=== PATIENT | female | born 1985 | race Caucasian/White ===

== ENCOUNTER 2016-11-14 21:42 | Emergency (ER) | payer OTHER ==
[~2016-11-14] VITALS: Ht 162.6 cm; Wt 81.6 kg
[~2016-11-14 21:42] MED LIST: FLAG500T PO; MACR100C3 PO; MAG400TA PO; NO MEDS AT HOME; PERCOCET PO; PREN27TA3 PO; VITAPRTA PO
[2016-11-14] MEDS ORDERED: [UNRECOGNIZED DRUG - CODE] PO (22:21)
[2016-11-14] MEDS ORDERED: APRITAB PO (22:21)
[2016-11-15 02:32] LABS: BASO % 0.5 % (0.0-1.0); EOS # 0.2 K/mm3 (0.0-0.50); EOS % 2.1 % (0.0-3.0); LARGE UNSTAINED CELL # 0.2 K/mm3 (0.0-0.4); LYMPH % 24.6 % (24.0-44.0); MEAN CORPUSCULAR HEMOGLOBIN 27.2 pg (27.0-33.0); MEAN CORPUSCULAR HGB CONC 33.4 g/dl (32.0-36.5); MEAN CORPUSCULAR VOLUME 81.4 fl (80.0-96.0); MONO # 0.5 K/mm3 (0.0-0.8); MONO % 5.8 % (0.0-5.0); NEUTROPHILS # 5.4 K/mm3 (1.8-7.7); NEUTROPHILS % 64.9 % (36.0-66.0); PLATELET COUNT, AUTOMATED 271 k/mm3 (150-450); RED CELL DISTRIBUTION WIDTH 13.4 % (11.5-14.5); WHITE BLOOD COUNT 8.3 K/mm3 (4.0-10.0)
[2016-11-15 02:37] LABS: CONTROL LINE HCG INT CTR LINE PRESENT
[2016-11-15 02:42] LABS: ALKALINE PHOSPHATASE 106 U/L (45-117); ALT/SGPT 50 U/L (12-78); ANION GAP 12 MEQ/L (8-16); AST/SGOT 26 U/L (15-37); BILIRUBIN,DIRECT < 0.1 MG/DL (0.0-0.2); BILIRUBIN,TOTAL 0.2 MG/DL (0.2-1.0); BLOOD UREA NITROGEN 12 MG/DL (7-18); CALCIUM LEVEL 9.1 MG/DL (8.5-10.1); CARBON DIOXIDE LEVEL 24 MEQ/L (21-32); CHLORIDE LEVEL 109 MEQ/L (98-107); CREATININE FOR GFR 0.84 MG/DL (0.55-1.02); GLOMERULAR FILTRATION RATE > 60.0 (>60); GLUCOSE, FASTING 93 MG/DL (70-105); POTASSIUM SERUM 3.4 MEQ/L (3.5-5.1); SODIUM LEVEL 145 MEQ/L (136-145)
[2016-11-15] MEDS ORDERED: metroNIDAZOLE (FLAGYL) 500 MG TAB PO ONE (04:30)
[2016-11-15] MEDS ORDERED: FLAG500T PO (04:32)
[2016-11-15 04:44] VITALS: BP 116/71
== END 2016-11-15 04:47 | disposition home or self-care (01) ==
LOC: M ED 22:38
DX: N76.0 Acute vaginitis (principal); R11.2 Nausea with vomiting, unspecified; M79.7 Fibromyalgia

== ENCOUNTER 2017-05-29 18:09 | Emergency (ER) | payer OTHER ==
[~2017-05-29] VITALS: Ht 165.1 cm; Wt 74.1 kg
[~2017-05-29 18:09] MED LIST changes: -BENT20TA PO; -PROT1TAB2 PO; -ZOFR4TAB3 PO
[2017-05-29] MEDS ORDERED: ONDANSETRON 4MG/2ML VIAL (J2405) IV ONE (20:00)
[2017-05-29] MEDS ORDERED: NS 1,000 ML IV ONE (20:00)
[2017-05-29] MEDS ORDERED: MORPHINE 4 MG/ML 1ML SYRINGE IV ONE (20:00)
[2017-05-29 20:01] LABS: CONTROL LINE UCG INT CTR LINE PRESENT
[2017-05-29 20:26] LABS: BASO % 0.4 % (0.0-1.0); EOS # 0.2 K/mm3 (0.0-0.50); EOS % 2.5 % (0.0-3.0); LARGE UNSTAINED CELL # 0.2 K/mm3 (0.0-0.4); LYMPH # 1.9 K/mm3 (1.5-4.5); LYMPH % 19.1 % (24.0-44.0); MEAN CORPUSCULAR HEMOGLOBIN 27.2 pg (27.0-33.0); MEAN CORPUSCULAR HGB CONC 33.6 g/dl (32.0-36.5); MEAN CORPUSCULAR VOLUME 81.2 fl (80.0-96.0); MONO # 0.8 K/mm3 (0.0-0.8); MONO % 8.1 % (0.0-5.0); NEUTROPHILS # 6.8 K/mm3 (1.8-7.7); NEUTROPHILS % 67.9 % (36.0-66.0); PLATELET COUNT, AUTOMATED 365 k/mm3 (150-450)
[2017-05-29 20:47] LABS: ALBUMIN 3.3 GM/DL (3.2-5.2); ALKALINE PHOSPHATASE 264 U/L (45-117); ALT/SGPT 98 U/L (12-78); ANION GAP 9 MEQ/L (8-16); AST/SGOT 72 U/L (15-37); BILIRUBIN,DIRECT < 0.1 MG/DL (0.0-0.2); BILIRUBIN,TOTAL 0.2 MG/DL (0.2-1.0); BLOOD UREA NITROGEN 9 MG/DL (7-18); CALCIUM LEVEL 8.4 MG/DL (8.5-10.1); CARBON DIOXIDE LEVEL 24 MEQ/L (21-32); CHLORIDE LEVEL 112 MEQ/L (98-107); CREATININE FOR GFR 0.57 MG/DL (0.55-1.02); GLOMERULAR FILTRATION RATE > 60.0 (>60); GLUCOSE, FASTING 86 MG/DL (70-105); POTASSIUM SERUM 3.7 MEQ/L (3.5-5.1); SODIUM LEVEL 145 MEQ/L (136-145); TOTAL PROTEIN 6.6 GM/DL (6.4-8.2)
--- NOTE | 2017-05-29 21:10 | REPUSA ---
CT of the abdomen and pelvis without contrast Clinical statement: Pain. Technique: Multiple axial CT images were obtained from the base of the lungs to the floor of the pelv is utilizing 5 mm axial slices without administration of contrast. Coronal and sagittal reconstructio ns were also obtained. Comparison: 07/24/2013. Findings: Chest: The visualized lung bases are clear. Abdomen: The kidneys are normal in size bilaterally. There is no evidence of hydronephrosis or nephro lithiasis. The liver, spleen, pancreas, and adrenal glands are unremarkable. The aorta demonstrates n ormal caliber and contour. There is no abdominal lymphadenopathy or ascites. Pelvis: The bowel is unremarkable, with no obstructive or inflammatory changes. The urinary bladder i s within normal limits. There is no pelvic lymphadenopathy or ascites. The other pelvic structures ap pear unremarkable. Bones: There are no suspicious osseous abnormalities seen. Impression: Unremarkable CT examination of the abdomen and pelvis.
[2017-05-29] MEDS ORDERED: KETOROLAC 30 MG/ML VIAL (J1885) IV ONE (21:45)
[2017-05-29] MEDS ORDERED: PROT1TAB2 PO (22:28)
[2017-05-29] MEDS ORDERED: ZOFR4TAB3 PO (22:28)
[2017-05-29] MEDS ORDERED: BENT20TA PO (22:28)
[2017-05-29] MEDS ORDERED: DICYCLOMINE 10 MG CAP PO ONE (22:30)
[2017-05-29] MEDS ORDERED: ONDANSETRON 4 MG ORAL DISINTEGRATING TAB (S0181) PO ONE (22:30)
[2017-05-29 22:46] VITALS: BP 121/70
== END 2017-05-29 22:48 | disposition home or self-care (01) ==
LOC: M ED 18:09
DX: R10.12 Left upper quadrant pain (principal); Z79.899 Other long term (current) drug therapy
CPT/HCPCS: 74176; 80048; 80076; 81001; 83690; 84703; 85025; 87086; 96374; 96375; 99283; J1885; J2405

== ENCOUNTER → 2017-05-29 | Outpatient (REF) | payer OTHER ==
[~2017-05-29] MED LIST changes: +APRITAB PO; +BENT20TA PO; -MACR100C3 PO; +MACR100C43 PO; +PROT1TAB2 PO; +ZOFR4TAB3 PO; +[UNRECOGNIZED DRUG - CODE] PO
== END ==
LOC: M SFHCLERA 16:15
PROVIDERS: ATTEND Nurse Practitioner Family
DX: R10.9 Unspecified abdominal pain (principal)

== ENCOUNTER → 2017-07-19 | Outpatient (CLI) | payer OTHER ==
[~2017-07-19] MED LIST changes: +BENT20TA PO; +PROT1TAB2 PO; +ZOFR4TAB3 PO
[2017-07-19 13:12] LABS: ALBUMIN 3.3 GM/DL (3.2-5.2); ALBUMIN/GLOBULIN RATIO 0.92 (1.00-1.93); ALKALINE PHOSPHATASE 141 U/L (45-117); ALT/SGPT 71 U/L (12-78); AST/SGOT 51 U/L (7-37); BILIRUBIN,DIRECT < 0.1 MG/DL (0.0-0.2); BILIRUBIN,TOTAL 0.1 MG/DL (0.2-1.0); IMMUNOGLOBULIN A 99.4 MG/DL (70-400); PERCENT SATURATION 19.9 % (13.2-45.0); TOTAL IRON BINDING CAPACITY 437 UG/DL (250-450); TOTAL PROTEIN 6.9 GM/DL (6.4-8.2)
== END ==
LOC: M LAB 11:46
PROVIDERS: ATTEND Internal Medicine Gastroenterology
DX: R94.5 Abnormal results of liver function studies (principal); R10.12 Left upper quadrant pain; R19.7 Diarrhea, unspecified

== ENCOUNTER → 2017-08-01 | Outpatient (REF) | payer OTHER ==
[~2017-08-01] MED LIST changes: +CLIN150C14 PO; +INDE1CAP5 PO
== END ==
LOC: M LAB REF 10:19
PROVIDERS: ATTEND Internal Medicine Gastroenterology
DX: R19.7 Diarrhea, unspecified (principal)

== ENCOUNTER 2017-08-05 12:25 | Observation (INO) | payer OTHER ==
[~2017-08-05] VITALS: Ht 162.6 cm; Wt 78.4 kg
[2017-08-05] MEDS ORDERED: NS 1,000 ML IV ONE (13:00)
[2017-08-05] MEDS ORDERED: APRITAB PO (13:26)
[2017-08-05] MEDS ORDERED: PROPOFOL 200 MG/20 ML VIAL As Ordered ONE ×2 (14:32→14:38)
[2017-08-05] MEDS ORDERED: LIDOCAINE 2% INJ 100 MG/5 ML SYRINGE As Ordered ONE (14:32)
--- NOTE | 2017-08-05 14:49 | ROOR ---
Patient Name: Sasha Esposito Procedure Date: 08/05/2017 2:30 PM Date of : 1985 Age: 32 Room: [facility] Gender: Female Note Status: Finalized Procedure: Colonoscopy Indications: Abdominal pain in the left lower quadrant, Abdominal pain in the left upper quadrant Providers: Junior BEEBE MD Referring MD: ANAHI SMITH MD Requesting Provider: Medicines: Monitored Anesthesia Care Complications: No immediate complications. Procedure: Pre-Anesthesia Assessment: - The heart rate, respiratory rate, oxygen saturations, blood pressure, adequacy of pulmonary ventilation, and response to care were monitored throughout the procedure. The Colonoscope was introduced through the anus and advanced to 8 cm into the ileum. The colonoscopy was performed without difficulty. The patient tolerated the procedure well. The quality of the bowel preparation was adequate. Findings: The perianal and digital rectal examinations were normal. The colon (entire examined portion) was mildly redundant. The entire examined colon appeared normal on direct and retroflexion views. The terminal ileum appeared normal. Impression: - Redundant colon. - Small internal hemorrhoids. - The entire colon is normal on direct and retroflexion views. - The examined portion of the ileum was normal. - No specimens collected. Recommendation: - Continue present medications. - A long/redundant colon raises possibility of constipation with overflow diarrhea symptoms. Continue current regimen for now. follow up with me in office to review labs. - Continue present medications. - To discuss todays findings, my office will call you in the next few days to schedule a follow up appointment. Junior Beebe MD Junior BEEBE MD 08/05/2017 2:49:04 PM This report has been signed electronically. Number of Addenda: 0 Note Initiated On: 08/05/2017 2:30 PM Estimated Blood Loss: Estimated blood loss: none.
[2017-08-05] MEDS ORDERED: diphenhydrAMINE INJ 50MG/ML VIAL (J1200) As Ordered ONE (15:09)
[2017-08-05] MEDS ORDERED: diphenhydrAMINE INJ 50MG/ML VIAL (J1200) IV ONE (15:15)
[2017-08-05] MEDS ORDERED: MIDAZOLAM INJ 2 MG/2 ML VIAL (J2250) As Ordered ONE (15:25)
[2017-08-05] MEDS ORDERED: ONDANSETRON 4MG/2ML VIAL (J2405) IV PRN (16:45)
[2017-08-05 17:33] LABS: MEAN CORPUSCULAR HEMOGLOBIN 26.6 pg (27.0-33.0); MEAN CORPUSCULAR HGB CONC 32.4 g/dl (32.0-36.5); MEAN CORPUSCULAR VOLUME 82.1 fl (80.0-96.0); PLATELET COUNT, AUTOMATED 329 10^3/uL (150-450); RED CELL DISTRIBUTION WIDTH 14.3 % (11.5-14.5)
[2017-08-05 17:51] LABS: CONTROL LINE HCG INT CTR LINE PRESENT
[2017-08-05 18:00] VITALS: BP 111/61
[2017-08-05 18:01] LABS: ALBUMIN 2.8 GM/DL (3.2-5.2); ALBUMIN/GLOBULIN RATIO 0.93 (1.00-1.93); ALKALINE PHOSPHATASE 92 U/L (45-117); ALT/SGPT 18 U/L (12-78); ANION GAP 9 MEQ/L (8-16); AST/SGOT 9 U/L (7-37); BILIRUBIN,TOTAL 0.2 MG/DL (0.2-1.0); BLOOD UREA NITROGEN 6 MG/DL (7-18); CARBON DIOXIDE LEVEL 24 MEQ/L (21-32); CHLORIDE LEVEL 113 MEQ/L (98-107); CREATININE FOR GFR 0.57 MG/DL (0.55-1.02); GLOMERULAR FILTRATION RATE > 60.0 (>60); GLUCOSE, FASTING 88 MG/DL (70-105); MAGNESIUM LEVEL 2.2 MG/DL (1.8-2.4); POTASSIUM SERUM 3.6 MEQ/L (3.5-5.1); SODIUM LEVEL 146 MEQ/L (136-145); TOTAL PROTEIN 5.8 GM/DL (6.4-8.2)
[2017-08-05 18:05] LABS: PROLACTIN 38.4 NG/ML
[2017-08-05 18:30] VITALS: BP 121/63
[2017-08-05] MEDS ORDERED: LORazepam 2 MG/ML VIAL (J2060) IV PRN (18:30)
[2017-08-05 20:00] VITALS: BP 117/61
--- NOTE | 2017-08-05 20:14 | CR ---
DATE OF CONSULTATION: 08/05/2017 REFERRING PHYSICIAN: Dr. Willian Murray. REASON FOR CONSULTATION: Seizure-like spells. HISTORY OF PRESENT ILLNESS: Sasha Esposito is a 32-year-old woman with history of left-sided abdominal pain and back pain, who had a colonoscopy today under anesthesia. She was given propofol during the procedure. Postoperatively when the patient was waking up, she started having spells of shaking of entire body. She had 10-15 episodes. She states that she does not remember her initial spells, but last 5-6 spells, she did not lose consciousness. She would shake for 15-30 seconds without tongue biting or urinary incontinence and postictal phase. She would only feel tired between her spells, but other doctors were at the scene described that she would respond to sternal rub during the spell and she would be able to follow commands as soon as her shaking spells would end. She would be able to talk and have a conversation. There was no postictal phase. She has history of off-and-on headaches in past. She has history of back pain. She denies any seizures. She denies any trauma or history of abuse or family history of seizures. The patient was seen at our office in 2016, for headaches and chronic back pain and her MRI scan of brain and lumbosacral spine were reportedly unremarkable. Her electromyogram (EMG) nerve conduction study of right arm and leg were also within normal limits. The patient stated that she had shaking of her body in 2013, when she was hospitalized and received a dose of Phenergan. She states that she kept shaking her entire body until medicine washed out of her system in 2013. PAST MEDICAL HISTORY: 1. Gastritis 2. Costochondritis. 3. Gastroenteritis. 4. Cholecystectomy. 5. Appendectomy. 6. Tonsillectomy, adenoidectomy. 7. Tachycardia. CURRENT MEDICATIONS: Propranolol at unknown dose, clindamycin, control pills. ALLERGIES: None. HISTORY: She is a [id number] mother. She denies smoking, alcohol or illicit drugs. FAMILY HISTORY: She denies any family history of seizures. Parents have hypertension and dyslipidemia. ALLERGIES: No known drug allergies. REVIEW OF SYSTEMS: All systems were reviewed and found to be noncontributory except as mentioned in history of present illness. PHYSICAL EXAMINATION: Blood pressure 118/62, pulse 102, respiratory rate 16, temperature 99.7. HEART: Regular rate and rhythm. LUNGS: Clear to auscultation. ABDOMEN: Soft, nontender, nondistended. EXTREMITIES: No pedal edema. No gross musculoskeletal abnormalities. EARS, NOSE, THROAT: Examination is within normal limits. NEUROLOGIC: There is no rash or tremor. There are no signs of meningeal irritation. The patient is awake, alert, oriented to place, person and time. Normal speech comprehension and repetition. Extraocular muscles are intact. No facial weakness. Tongue and uvula are midline. 5/5 strength in all four extremities. Deep tendon reflexes 2+ throughout. Normal sensation. No dysmetria. Plantars are downgoing. There is no rigidity. ASSESSMENT: 1. Seizure-like spells. 2. There is concern for seizures and psychogenic nonepileptic spells (PNES). 3. History of migraines, without aura, not intractable. 4. History of chronic back pain with normal MRI scan of lumbosacral spine. PLAN: 1. MRI brain. 2. Ativan 0.5 mg intravenous (IV) every six hours as needed for seizure-like spells. 3. Electroencephalogram (EEG) likely on outpatient basis, and if her spells continue, we may consider video EEG monitoring due to suspicion for psychogenic nonepileptic spells (PNES). 4. She should not be driving until her tests are completed. 5. Keppra 500 mg by mouth twice a day if her spells recur. 6. Follow with our office within a month after hospital discharge.
--- NOTE | 2017-08-05 21:23 | HPEPDOC ---
General Date of Admission Aug 05, 2017 at 17:19 Attending Physician: CHAPIS STUART MD Chief Complaint The patient is a 32-year-old female admitted with a reason for visit of Abdominal Pain,Diarrhea. History of Present Illness 32-year-old female with past medical history of migraine headaches and tachycardia was initially at [facility] for a colonoscopy for outpatient workup of left -sided abdominal pain. However following the procedure, the patient was noted to have involuntary movements and shaking spells of her entire body. Apparently , the patient was able to follow commands immediately following these episodes. The patient denies any history of seizures in the past, but does note that she has had a similar episode of involuntary movements following receiving a dose of Phenergan during her in 2013. The patient denies any confusion following the event, or any tongue biting, urinary/fecal incontinence. The patient is able to answer questions appropriately and denies any acute complaints at this time. The patient denies any complaints of headaches, fevers , chills, chest pain, palpitations, abdominal pain, or any nausea/vomiting/ diarrhea at this time. The patient will be admitted to the hospitalist service for further evaluation and management. A consult has been placed to neurology for further evaluation. Home Medications Scheduled (Apri 0.15-30 mg-Mcg) 1 Tab Tab, 1 TAB PO DAILY, (Reported) Clindamycin Hcl (Clindamycin HCl) 150 Mg Cap, 300 MG PO BID, (Reported) Propranolol Hcl (Inderal LA) 60 Mg Cap, 60 MG PO QAM, (Reported) Miscellaneous Medications (Apri 0.15-30 mg-Mcg) 1 Tab Tab, 1 TAB PO, (Reported) Allergies Coded Allergies: Contrast Media (Unverified Allergy, Unknown, swelling, rash, itching, ) Oxycodone (Unverified Allergy, Unknown, itching, 08/04/17) Past Medical History Medical History As noted in HPI. Surgical History Cholecystectomy, appendectomy, tonsillectomy, adenoidectomy Family History No family history of seizure disorder Social History * Smoker: Denies Alcohol: occationally Drugs: denies Review of Symptoms Other systems 10 point review of systems negative unless otherwise specified in HPI. Physical Examination General Exam: Positive: Alert, Cooperative, No Acute Distress Eye Exam: Positive: PERRLA ENT Exam: Positive: Atraumatic, Mucous membr. moist/pink Neck Exam: Negative: JVD Chest Exam: Positive: Clear to auscultation, Normal air movement Heart Exam: Positive: Rate Normal, Normal S1, Normal S2 Telemetry: Positive: Sinus Abdomen Exam: Positive: Soft, Negative: Tenderness Extremity Exam: Negative: Tenderness, Swelling Neuro Exam: Positive: Strength at 5/5 X4 ext Psych Exam: Positive: Oriented x 3 Vital Signs Vital Signs Date Time Temp Pulse Resp B/P (MAP) Pulse Ox O2 Delivery O2 Flow Rate FiO2 08/05/17 20:00 97.8 95 18 117/61 (79) 98 Room Air Laboratory Data Labs 24H Laboratory Tests 2 08/05/17 15:29: Bedside Glucose (Misc Panel) 95 08/05/17 17:03: Nucleated Red Blood Cells % (auto) 0.0, Anion Gap 9, Glomerular Filtration Rate > 60.0, Blood Urea Nitrogen 6L, Creatinine 0.57, Sodium Level 146H, Potassium Level 3.6, Chloride Level 113H, Carbon Dioxide Level 24, Calcium Level 8.0L, Aspartate Amino Transf (AST/SGOT) 9, Alanine Aminotransferase (ALT/SGPT) 18, Total Creatine Kinase 56, Alkaline Phosphatase 92, Total Bilirubin 0.2, Total Protein 5.8L, Albumin 2.8L, Magnesium Level 2.2, Albumin/Globulin Ratio 0.93L, Human Chorionic Gonadotropin, Qual NEGATIVE 08/05/17 17:04: Ammonia 17 08/05/17 17:05: Thyroid Stimulating Hormone (TSH) 1.010, Free Thyroxine Index 4.3, Thyroxine (T4 ) 16.0H, Triiodothyronine (T3) Uptake 27L, Prolactin 38.4 CBC/BMP Laboratory Tests 08/05/17 17:03 Red Blood Count 4.25, Mean Corpuscular Volume 82.1, Mean Corpuscular Hemoglobin 26.6 L, Mean Corpuscular Hemoglobin Concent 32.4, Red Cell Distribution Width 14.3, Calcium Level 8.0 L, Aspartate Amino Transf (AST/SGOT) 9, Alanine Aminotransferase (ALT/SGPT) 18, Total Creatine Kinase 56, Alkaline Phosphatase 92, Total Bilirubin 0.2, Total Protein 5.8 L, Albumin 2.8 L Plan / VTE VTE Prophylaxis Ordered?: No (Ambulation/OOB encouraged) Plan Plan ?Seizure like spells vs Psychogenic nonepileptic spells Involuntary movements possibly related to Propofol used during colonoscopy? This is listed as one of the side effects in up to 10% of patients. CBC, CMP, Mag, Toxicology screen, TFT's, Ammonia, CPK, and Prolactin levels ordered Screen MRI of the Brain ordered Seizure precautions Prn ativan ordered Neurology consulted Hx of Tachycardia In NSR on my examination Cont Propranolol DVT Prophylaxis Ambulation, OOB encouraged This patient will be admitted under the service of Dr. Ayoub, who will begin to follow the patient on 08/06/17 at 7 AM. FABIANA GAUTAM MD Aug 05, 2017 21:23
[2017-08-05] MEDS: ACETAMINOPHEN TAB 650MG DOSE (2X325MG) PO PRN (23:36)
[2017-08-05 23:59] VITALS: BP 118/64
[2017-08-06 04:00] VITALS: BP 101/59
[2017-08-06 05:50] LABS: ALBUMIN 2.6 GM/DL (3.2-5.2); ALBUMIN/GLOBULIN RATIO 0.76 (1.00-1.93); ALKALINE PHOSPHATASE 95 U/L (45-117); ALT/SGPT 16 U/L (12-78); ANION GAP 8 MEQ/L (8-16); AST/SGOT 8 U/L (7-37); BILIRUBIN,TOTAL 0.2 MG/DL (0.2-1.0); BLOOD UREA NITROGEN 4 MG/DL (7-18); CALCIUM LEVEL 8.2 MG/DL (8.5-10.1); CARBON DIOXIDE LEVEL 24 MEQ/L (21-32); CHLORIDE LEVEL 111 MEQ/L (98-107); CREATININE FOR GFR 0.53 MG/DL (0.55-1.02); GLOMERULAR FILTRATION RATE > 60.0 (>60); GLUCOSE, FASTING 102 MG/DL (70-105); MAGNESIUM LEVEL 2.1 MG/DL (1.8-2.4); POTASSIUM SERUM 3.7 MEQ/L (3.5-5.1); SODIUM LEVEL 143 MEQ/L (136-145)
[2017-08-06 07:57] VITALS: BP 113/70
[2017-08-06] MEDS: ACETAMINOPHEN TAB 650MG DOSE (2X325MG) PO PRN (07:57)
[2017-08-06 08:04] VITALS: BP 113/70
[2017-08-06] MEDS ORDERED: PROPRANOLOL 60 MG LA CAP PO SCH (09:00)
--- NOTE | 2017-08-06 09:58 | REP ---
MRI BRAIN WITHOUT CONTRAST: HISTORY: Involuntary movement. COMPARISON: 07/28/2009. There are no areas of abnormal signal intensity in the brain. There is no intraparenchymal hemorrhage, infarct, mass or midline shift. The ventricular system is normal in appearance. There is no extracerebral collection. The sinuses are clear. IMPRESSION: There is no intracranial lesion. Signed by Chele Strauss MD 08/06/2017 10:43 A
--- NOTE | 2017-08-06 15:32 | DSES ---
DATE OF ADMISSION: 08/05/2017 DATE OF DISCHARGE: 08/06/2017 SUBJECTIVE: The patient now admits she is feeling better today. She has had no further episodes of uncontrollable movements. She feels well and would like to go home. Has no complaints. OBJECTIVE: VITAL SIGNS: Temperature 99.3, pulse 92, respiratory rate 19, blood pressure 115/70, oxygen saturation 97% on room air. GENERAL: She is pleasant, young female sitting up in bed eating breakfast. She does not appear to be in any acute distress. She is accompanied by her . HEENT: Cranial nerves II through XII are grossly intact. She has moist mucous membranes. CARDIOVASCULAR: S1, S2 regular. RESPIRATORY: Clear. ABDOMEN: Benign. EXTREMITIES: No clubbing, cyanosis or edema. NEUROLOGIC: Her neurologic exam is nonfocal. LABORATORY DATA: WBC 9.0, hemoglobin 11.3, platelet count 329. Chemistry panel: Sodium 143, potassium 3.7, chloride 111, bicarbonate 24, BUN four, creatinine 0.5. IMAGING: The patient did have an MRI of the brain which revealed no intracranial lesion. ASSESSMENT AND PLAN: This is a 32-year-old female with seizure-like spells. Seizure-like spells: There was concern for seizures versus psychogenic nonepileptic spells versus medication adverse effect. She has had no further episodes. Actually has had episodes of this in the past versus psychogenic nonepileptic spells versus medication adverse effect related to propofol. At this time, it appears that through it all she did not require any medications. I have spoken with Dr. Vaughan who agrees she is medically stable for discharge home. She is to followup in their clinic in one month for electroencephalogram (EEG) and if she does have future spells, possible video EEG. I have advised her to avoid driving until followup. Otherwise, her diet and medications are all as prior to admission without change.
== END 2017-08-06 12:28 | disposition home or self-care (01) ==
LOC: M OPP 12:25 → M PCU 17:19
PROVIDERS: ADMIT Internal Medicine; ATTEND Internal Medicine Gastroenterology
DX: K56.2 Volvulus (principal); K64.8 Other hemorrhoids; R19.7 Diarrhea, unspecified; R25.8 Other abnormal involuntary movements; G43.909 Migraine, unspecified, not intractable, without status migrainosus; M54.9 Dorsalgia, unspecified; G89.29 Other chronic pain; R00.0 Tachycardia, unspecified; Z91.041 Radiographic dye allergy status; Z88.5 Allergy status to narcotic agent; Z79.2 Long term (current) use of antibiotics; Z79.899 Other long term (current) drug therapy
CPT/HCPCS: 36415; 45378; 70551; 80053; 80307; 82140; 82550; 83735; 84146; 84436; 84443; 84479; 84703; 85027; J1200; J2250

== ENCOUNTER → 2017-08-31 | Outpatient (CLI) | payer OTHER ==
[2017-08-31 08:51] LABS: BASO % 0.8 % (0.0-1.0); EOS # 0.1 10^3/uL (0.0-0.50); EOS % 2.6 % (0.0-3.0); IMMATURE GRANULOCYTE % 0.4 % (0-0); LYMPH # 1.5 10^3/uL (1.5-4.5); LYMPH % 28.2 % (24.0-44.0); MEAN CORPUSCULAR HEMOGLOBIN 25.8 pg (27.0-33.0); MEAN CORPUSCULAR HGB CONC 31.8 g/dl (32.0-36.5); MEAN CORPUSCULAR VOLUME 81.1 fl (80.0-96.0); MONO # 0.7 10^3/uL (0.0-0.8); MONO % 12.2 % (0.0-5.0); NEUTROPHILS % 55.8 % (36.0-66.0); PLATELET COUNT, AUTOMATED 377 10^3/uL (150-450); RED CELL DISTRIBUTION WIDTH 13.8 % (11.5-14.5); WHITE BLOOD COUNT 5.3 10^3/uL (4.0-10.0)
[2017-08-31 09:01] LABS: INR 0.96
== END ==
LOC: M LAB 07:48
DX: R94.5 Abnormal results of liver function studies (principal)
CPT/HCPCS: 86255

== ENCOUNTER → 2017-09-02 | Outpatient (CLI) | payer OTHER ==
[~2017-09-02] MED LIST changes: -APRITAB PO; -BENT20TA PO; -CLIN150C14 PO; -FLAG500T PO; -INDE1CAP5 PO; +LIDOCAINE 1% MDV 20ML VIAL As Ordered; -MACR100C43 PO; -MAG400TA PO; -NO MEDS AT HOME; -PERCOCET PO; -PREN27TA3 PO; -PROT1TAB2 PO; -VITAPRTA PO; -ZOFR4TAB3 PO; -[UNRECOGNIZED DRUG - CODE] PO
== END ==
LOC: M RADPRO 08:41
DX: R94.5 Abnormal results of liver function studies (principal); Z91.041 Radiographic dye allergy status; Z88.5 Allergy status to narcotic agent; Z79.899 Other long term (current) drug therapy
CPT/HCPCS: 47000

== ENCOUNTER → 2018-02-01 | Outpatient (REF) | payer OTHER | LOC: M SFHCLERA 09:58 | DX: J02.9 Acute pharyngitis, unspecified (principal) ==

== ENCOUNTER → 2022-11-01 | Outpatient (CLI) | payer OTHER ==
[~2022-11-01] MED LIST changes: +APRITAB PO; +BENT20TA PO; +CLIN150C17 PO; +FERR1TAB8 PO; +FLAG500T PO; +FOLI800C PO; +INDE60CA4 PO; -LIDOCAINE 1% MDV 20ML VIAL As Ordered; +MACR100C43 PO; +MAGN400T35 PO; +NO MEDS AT HOME; +PANT20TA6 PO; +PERCOCET PO; +PREN27TA3 PO; +PROT1TAB2 PO; +VITAPRTA PO; +ZOFR4TAB14 PO; +[UNRECOGNIZED DRUG - CODE] PO
== END ==
LOC: M LABSMTC 09:52
PROVIDERS: ATTEND Anesthesiology
DX: Z01.812 Encounter for preprocedural laboratory examination (principal)

== ENCOUNTER 2022-11-05 12:43 | Day surgery (SDC) | payer OTHER ==
[~2022-11-05] VITALS: Ht 165.1 cm; Wt 75.7 kg
[~2022-11-05 12:43] MED LIST changes: +LIDOCAINE 2% 100MG/5ML SDV (FOR ANES.) As Ordered ONE; +fentaNYL 100 MCG/2 ML INJECTION As Ordered ONE
[2022-11-05] MEDS ORDERED: MIDAZOLAM INJ 2MG/2ML VIAL As Ordered ONE ×3 (13:59→14:53)
[2022-11-05] MEDS ORDERED: fentaNYL 100 MCG/2 ML INJECTION As Ordered ONE ×2 (14:51→14:56)
[2022-11-05 15:39] VITALS: BP 110/61
== END 2022-11-05 15:43 | disposition home or self-care (01) ==
LOC: M OPP 12:43
PROVIDERS: ATTEND Internal Medicine Gastroenterology
DX: K30 Functional dyspepsia (principal); R11.0 Nausea; K31.89 Other diseases of stomach and duodenum; K21.9 Gastro-esophageal reflux disease without esophagitis; M06.9 Rheumatoid arthritis, unspecified; Z88.4 Allergy status to anesthetic agent; Z88.5 Allergy status to narcotic agent; Z88.8 Allergy status to other drugs, medicaments and biological substances; Z91.041 Radiographic dye allergy status; Z79.899 Other long term (current) drug therapy; Z83.49 Family history of other endocrine, nutritional and metabolic diseases; Z83.3 Family history of diabetes mellitus; Z80.0 Family history of malignant neoplasm of digestive organs; Z80.3 Family history of malignant neoplasm of breast; Z80.41 Family history of malignant neoplasm of ovary
CPT/HCPCS: 43239; 88305; J2250; J3010

== ENCOUNTER → 2022-11-26 | Outpatient (CLI) | payer OTHER ==
[~2022-11-26] MED LIST changes: -LIDOCAINE 2% 100MG/5ML SDV (FOR ANES.) As Ordered ONE; -fentaNYL 100 MCG/2 ML INJECTION As Ordered ONE
== END ==
LOC: M LAB 16:23
PROVIDERS: ATTEND Internal Medicine Gastroenterology
DX: D50.9 Iron deficiency anemia, unspecified (principal)

== ENCOUNTER → 2023-02-21 | Outpatient (CLI) | payer OTHER ==
[~2023-02-21] MED LIST changes: +E-Z-PAQUE 96% w/w SUSP 176GM BTL As Ordered ONE
== END ==
LOC: M RAD 09:14
PROVIDERS: ATTEND Physician Assistant Medical
DX: K90.0 Celiac disease (principal)